=== PATIENT | female | born 1985 | race Hispanic/Latino ===

== ENCOUNTER 2022-07-06 12:50 | Emergency (ER) | payer MEDICAID, SELFPAY ==
[2022-07-06] MEDS ORDERED: Tetracaine 0.5% PF 4 ML BOT ONE (14:05)
[2022-07-06] MEDS ORDERED: Metoclopramide HCl 10 MG/2 ML VIAL ONE (14:54)
== END 2022-07-06 15:52 | disposition home or self-care (01) ==
LOC: CSHERS 12:50
DX: L01.00 Impetigo, unspecified (principal); H10.9 Unspecified conjunctivitis; R59.0 Localized enlarged lymph nodes
CPT/HCPCS: 96372; 99283; J2765